=== PATIENT | male | born 1940 | race Caucasian/White ===

== ENCOUNTER 2019-03-09 20:32 | Inpatient (IN) | payer MEDICARE ==
[2019-03-09 21:43] VITALS: BMI 28.6
[2019-03-09] MEDS: Cyclobenzaprine 10 MG TAB PO PRN (22:18)
[2019-03-09] MEDS: Ibuprofen 200 MG TAB PO PRN (22:18)
[2019-03-09] MEDS ORDERED: EPOETIN ALFA EPBX SC SCH (22:30)
[2019-03-09] MEDS ORDERED: Atorvastatin Calcium 40 MG TAB PO SCH (22:30)
[2019-03-09] MEDS ORDERED: Carvedilol 6.25 MG TAB PO SCH (22:30)
[2019-03-09] MEDS: Acetaminophen 500 MG TAB PO SCH (23:30)
[2019-03-10] MEDS: Acetaminophen 500 MG TAB PO SCH ×4 (05:27→23:36)
[2019-03-10 05:34] LABS: #Eosinphils 0.1 thou/uL (0.0-0.7); #Lymphocytes 0.7 thou/uL (1.20-3.40); #Monocytes 0.6 thou/uL (0.11-0.59); #Neutrophils 3.5 thou/uL (1.40-6.50); %Basophils 0.7 % (0.0-1.0); %Eosinophils 2.4 % (0.0-10.0); %Lymphocytes 13.9 % (21.0-51.0); %Monocytes 12.8 % (0.0-10.0); %Neutrophils 70.1 % (42.0-75.0); MDiff Complete? YES; Macrocytosis MODERATE=16-30 cells (100X) (0-5/hpf); Mean Corpuscular HGB CONC 32.2 g/dL (32.0-36.0); Mean Corpuscular Hemoglobin 33.9 pg (27.0-31.0); Mean Platelet Volume 6.7 fL (7.4-10.4); Platelet Count 203 thou/uL (130-400); Platelet Morphology Comment Appears Adequate; RBC Distribution Width 15.3 % (11.5-14.5); Red Blood Cell (RBC) Count 2.66 mill/uL (4.70-6.10)
[2019-03-10 05:38] LABS: ALT (SGPT) 12 U/L (8-55); AST (SGOT) 24 U/L (5-34); Albumin 3.2 g/dL (3.4-4.8); Alkaline Phosphatase 110 U/L (40-150); Anion Gap 18 mmol/L (10-20); BUN (Urea Nitrogen) 25 mg/dL (8.4-25.7); Bilirubin, Total 1.2 mg/dL (0.2-1.2); Calc. Creatinine Clearance 22 mL/min (70-130); Carbon Dioxide 27 mmol/L (23-31); Chloride 98 mmol/L (98-107); Estimated GFR-MDRD 18; Glucose 78 mg/dL (83-110); Potassium 3.9 mmol/L (3.5-5.1); Protein, Total 6.2 g/dL (5.8-8.1); Sodium 139 mmol/L (136-145)
[2019-03-10] MEDS: Sevelamer Carbonate 800 MG TAB PO SCH ×3 (09:31→17:20)
[2019-03-10] MEDS: Allopurinol 100 MG TAB PO SCH (09:32)
[2019-03-10] MEDS: Amiodarone 200 MG TAB PO SCH (09:32)
[2019-03-10] MEDS: Carvedilol 6.25 MG TAB PO SCH ×2 (09:32→21:37)
[2019-03-10] MEDS: Amlodipine 5 MG TAB PO SCH (09:32)
[2019-03-10] MEDS: Ibuprofen 200 MG TAB PO PRN (16:12)
[2019-03-10] MEDS: Warfarin Sodium 2.5 MG TAB PO SCH (17:21)
[2019-03-10] MEDS: Atorvastatin Calcium 40 MG TAB PO SCH (21:37)
[2019-03-10] MEDS: Cyclobenzaprine 10 MG TAB PO PRN (21:41)
[2019-03-11 05:16] LABS: Hemoglobin 8.7 g/dL (14.0-18.0); Platelet Count 200 thou/uL (130-400)
[2019-03-11 05:24] LABS: INR-International Normal Ratio 2.1; Prothrombin Time 23.1 SEC (12.0-14.7)
[2019-03-11] MEDS: Acetaminophen 500 MG TAB PO SCH ×3 (05:33→17:25)
--- NOTE | 2019-03-11 06:31 | PRG ---
DATE OF SERVICE: 03/10/2019 SUBJECTIVE: The patient lying in bed, resting with no complaints. He has not had therapy today, but has had no shortness of breath or chest pain. OBJECTIVE: VITAL SIGNS: Shows his blood pressure 110/57, O2 sat is 97% on 2 L, temperature 97.5, pulse 61, respirations 18. LUNGS: Show decreased breath sounds. No rales or rhonchi. CARDIAC: Shows an irregular rhythm, 2/6 holosystolic murmur over the entire chest. ABDOMEN: Soft and nontender. Right AV fistula in the arm. Peritoneal dialysis catheter in abdomen. ASSESSMENT: 1. Resolving left rib fractures with minimal apical pneumo. 2. Stable, but severe nonischemic cardiomyopathy, ejection fraction 10-15 percent, status post automatic implantable cardioverter defibrillator. 3. Stable atrial fibrillation with rate control and anticoagulation. 4. Severe deconditioning, awaiting therapy. 5. End-stage renal disease, being followed by Dr. Ornelas on dialysis 3 times weekly. PLAN: Start PT/OT tomorrow. Continue dialysis 3 times weekly. Continue to monitor for hypotension, chest pain, palpitations, dizziness, and syncope. Job ID: [id number]
--- NOTE | 2019-03-11 07:15 | HP ---
HISTORY OF PRESENT ILLNESS: The patient is an unfortunate 78-year-old white male with a history of end-stage renal disease, on hemodialysis, as well as end-stage congestive systolic heart failure with ejection fraction of 10%, status post AICD placement and chronic atrial fibrillation, on chronic anticoagulation, who has fallen approximately 5 days ago on March 03 and suffered multiple left rib fractures with only a small apical pneumothorax. He was admitted to the trauma service and monitored. He did have some problems with fluid overload after resuscitation as he does have the above mentioned severe cardiomyopathy as well as severe mitral valve regurgitation and moderate aortic valve stenosis. He has subsequently been optimized on his medical treatment by Cardiology, Dr. Henley and Dr. Weldon and is felt to be stable and be transferred to [facility] for physical therapy. At present, he has no shortness of breath at rest, but has shortness of breath on minimal exertion. He has had his carvedilol dose decreased to 6.25 twice daily and has continued on amiodarone 200 daily for rate control of his atrial fibrillation. He is not on an BARTOLO inhibitor because of his hypotension. He is very weak, but is willing to cooperate with physical therapy. He has had complications in the past of severe ascites from his congestive heart failure and renal failure and has required peritoneal drainage, but none recently. PAST MEDICAL HISTORY: Otherwise unremarkable. PAST SURGICAL HISTORY: Positive for an AICD placement, peritoneal dialysis catheter placement and hemodialysis catheter. SOCIAL HISTORY: He lives with his . He has no drug use. No smoking history. Drinks occasionally. REVIEW OF SYSTEMS: HEENT: He denies any headaches, dizziness, change in vision, or hearing. PULMONARY: He has no cough, or sputum production, but does have dyspnea on minimal exertion. CARDIOVASCULAR: He denies chest pain, orthopnea, paroxysmal nocturnal dyspnea, but does have above-mentioned dyspnea on minimal exertion. GASTROINTESTINAL: He denies nausea, vomiting, diarrhea, or constipation. GENITOURINARY: Denies dysuria, or hematuria. MUSCULOSKELETAL: Complains of diffuse severe weakness. NEUROLOGIC: Denies localized numbness or tingling to arms or extremities. PHYSICAL EXAMINATION: GENERAL: The patient is an elderly male, lying flat in bed, sleeping, in no acute distress. Oriented x3 and cooperative. VITAL SIGNS: Show him to have blood pressure 122/58, O2 sats 93% on room air, respirations 20, pulse 77, afebrile. HEENT: Pupils are equal, round and reactive to light and accommodation. Sclerae anicteric. Conjunctivae pale. Oral mucous membranes well hydrated. NECK: Supple. No nodes or masses. JVP is not elevated. LUNGS: Decreased breath sounds diffusely. No rales or rhonchi. CARDIAC: Regular rhythm. PMI in the 5th intercostal space 1 cm left midclavicular line. There is an AICD in place. ABDOMEN: Soft, nontender, nondistended. No masses or organomegaly. SKIN/EXTREMITIES: No edema, clubbing, or cyanosis. NEUROLOGIC: Intact. LABORATORY DATA: Most recent laboratories show white count of 6000, hematocrit 27, hemoglobin 9.4. PT 26.4, INR 2.5. Sodium 135, potassium 4.3, chloride 96, bicarb 25, BUN 34, creatinine 4.29. Most recent chest x-ray on March 06 shows cardiomegaly, small left apical pneumothorax. No pulmonary congestion. The patient is not to be resuscitated per his and power of real estate attorney. MEDICATIONS: At this time include; 1. Allopurinol 50 mg daily. 2. Amiodarone 200 daily. 3. Amlodipine 5 daily. 4. Atorvastatin 40 daily. 5. Carvedilol 6.25 twice daily. 6. Sevelamer 800 mg 3 times daily. 7. Warfarin 2.5 daily. ASSESSMENT: The patient is an 78-year-old white male with; 1. History of end-stage congestive heart failure, 10% to 15% ejection fraction, status post AICD placement, who has had recent decompensation of congestive heart failure in the hospital after fluid resuscitation for his recent multiple left rib fractures. 2. His multiple left rib fractures are healing with small left apical pneumothorax, asymptomatic and no hemothorax with stable pain. 3. End-stage renal disease, on hemodialysis, being followed by Dr. Ornelas with adequate fluid removal with dialysis and appears to be euvolemic. 4. Atrial fibrillation with rate control and anticoagulation on warfarin with adequate PT/INR. 5. Severe deconditioning with inability to maintain ADLs, being admitted to [facility] for PT/OT. PLAN: 1. Continue physical therapy and occupational therapy. 2. Continue warfarin 2.5 daily. Check PT, INR daily. 3. Continue dialysis 3 times weekly. 4. Review vital signs during therapy and monitor for hypotension, chest pain or hypoxemia. 5. Continue to monitor for recurrent ascites or edema. 6. Continue blood pressure control with amlodipine and carvedilol. 7. Stress ulcer prophylaxis with pantoprazole 40 mg daily. Job ID: [id number]
[2019-03-11] MEDS: Allopurinol 100 MG TAB PO SCH (08:51)
[2019-03-11] MEDS: Sevelamer Carbonate 800 MG TAB PO SCH ×3 (08:51→17:24)
[2019-03-11] MEDS: Amlodipine 5 MG TAB PO SCH (08:51)
[2019-03-11] MEDS: Amiodarone 200 MG TAB PO SCH (08:52)
[2019-03-11] MEDS: Carvedilol 6.25 MG TAB PO SCH ×2 (08:52→21:18)
[2019-03-11] MEDS ORDERED: EPOETIN ALFA EPBX SC SCH (13:00)
[2019-03-11] MEDS: Warfarin Sodium 2.5 MG TAB PO SCH (17:25)
[2019-03-11] MEDS: Ibuprofen 200 MG TAB PO PRN (21:18)
[2019-03-11] MEDS: Atorvastatin Calcium 40 MG TAB PO SCH (21:18)
--- NOTE | 2019-03-11 21:46 | PRG ---
DATE OF SERVICE: 03/11/2019 SUBJECTIVE: The patient feels well, lying in the bed, decreasing pain, controlled with Tylenol. No shortness of breath or chest pain. He has not had therapy, but is preparing for this. OBJECTIVE: VITAL SIGNS: Temperature 96.9, blood pressure 98/54, respirations 18, pulse 60, and O2 sats 99% on room air. LUNGS: Clear. CARDIAC: Regular rhythm. ABDOMEN: Soft and nontender. SKIN/EXTREMITIES: No edema. ASSESSMENT: 1. Resolving left rib fractures, minimal pneumothorax. The patient is working on incentive spirometer. 2. Stable with severe nonischemic cardiomyopathy, ejection fraction of 10% to 15%, status post automatic implantable cardiac defibrillator. 3. Stable atrial fibrillation with rate control and anticoagulation. 4. Severe deconditioning, awaiting therapy. 5. End-stage renal disease, on dialysis 3 times weekly. PLAN: 1. Continue incentive spirometer. 2. Continue PT/OT. 3. Continue dialysis 3 times weekly. 4. Continue to monitor for chest pain, shortness of breath, palpitations or syncope. Job ID: [id number]
[2019-03-12] MEDS: Acetaminophen 500 MG TAB PO SCH ×4 (00:08→21:08)
[2019-03-12 05:08] LABS: Hemoglobin 8.6 g/dL (14.0-18.0); Platelet Count 205 thou/uL (130-400)
[2019-03-12 05:18] LABS: INR-International Normal Ratio 2.3; Prothrombin Time 24.9 SEC (12.0-14.7)
[2019-03-12] MEDS: Sevelamer Carbonate 800 MG TAB PO SCH ×3 (08:45→21:08)
[2019-03-12] MEDS: Amiodarone 200 MG TAB PO SCH (08:45)
[2019-03-12] MEDS: Allopurinol 100 MG TAB PO SCH (08:45)
[2019-03-12] MEDS: Carvedilol 6.25 MG TAB PO SCH ×2 (08:45→21:10)
[2019-03-12] MEDS: Amlodipine 5 MG TAB PO SCH (08:45)
--- NOTE | 2019-03-12 20:30 | PRG ---
DATE OF SERVICE: 03/12/2019 SUBJECTIVE: The patient feels well, got dialysis now, is cooperating with therapy today. OBJECTIVE: VITAL SIGNS: Temperature is 95.5, pulse 60, respirations 18, O2 sats 97% on room air. LUNGS: Clear. CARDIAC: Examination shows regular rhythm. ABDOMEN: Soft and nontender. Minimal tenderness to palpation of the left side of the chest. ASSESSMENT: 1. Resolving left rib fractures. 2. Resolving minimal apical pneumo. 3. Stable end-stage renal disease, on hemodialysis. 4. Deconditioning improving with therapy. 5. Systolic heart failure, stable with AICD placement. 6. Chronic atrial fibrillation with rate control and anticoagulation. PLAN: 1. Continue PT/OT. 2. Monitor vital signs during therapy. 3. Continue mild pain relief for fractured ribs. 4. Continue stress ulcer prophylaxis. Job ID: [id number]
[2019-03-12] MEDS: Warfarin Sodium 2.5 MG TAB PO SCH (21:08)
[2019-03-12] MEDS: Atorvastatin Calcium 40 MG TAB PO SCH (21:10)
[2019-03-13] MEDS: Acetaminophen 500 MG TAB PO SCH ×5 (00:13→23:49)
[2019-03-13] MEDS: Cyclobenzaprine 10 MG TAB PO PRN (00:17)
[2019-03-13] MEDS: Ibuprofen 200 MG TAB PO PRN (00:18)
[2019-03-13 06:05] LABS: Hemoglobin 8.5 g/dL (14.0-18.0); Platelet Count 217 thou/uL (130-400)
[2019-03-13 06:10] LABS: INR-International Normal Ratio 2.7; Prothrombin Time 28.3 SEC (12.0-14.7)
[2019-03-13] MEDS: Amlodipine 5 MG TAB PO SCH (08:14)
[2019-03-13] MEDS: Carvedilol 6.25 MG TAB PO SCH ×2 (08:14→20:15)
[2019-03-13] MEDS: Amiodarone 200 MG TAB PO SCH (08:14)
[2019-03-13] MEDS: Sevelamer Carbonate 800 MG TAB PO SCH ×3 (08:14→17:39)
[2019-03-13] MEDS: Allopurinol 100 MG TAB PO SCH (08:14)
[2019-03-13] MEDS: Warfarin Sodium 2.5 MG TAB PO SCH (17:39)
[2019-03-13] MEDS: Atorvastatin Calcium 40 MG TAB PO SCH (20:15)
--- NOTE | 2019-03-13 22:12 | PRG ---
DATE OF SERVICE: 03/13/2019 SUBJECTIVE: The patient feels well, feeling stronger with increasing strength, decreasing left sided chest pain. He states he is having some increasing abdominal ascites and feels he needs some removal by peritoneal dialysis. He is still receiving hemodialysis also. I advised him this needs to be discussed with his steam shovel engineer to determine how much . OBJECTIVE: VITAL SIGNS: Temperature is 97.1, pulse 60, respirations 18, O2 sats 98% on room air. Blood pressure LUNGS: Clear. CARDIAC: Showed regular rhythm. ABDOMEN: Soft and nontender, but distended with fluid wave. SKIN: Extremities show no edema. LABORATORY DATA: Hemoglobin 8.5, and platelet count 217,000. PT 28.3, INR 2.7. ASSESSMENT: 1. Stable atrial fibrillation with rate controlled on anticoagulation with warfarin. 2. Stable ischemic cardiomyopathy with 15% ejection fraction. Tolerating physical therapy well, but with increasing ascites. 3. End-stage renal disease, on hemodialysis and with peritoneal dialysis occasionally to remove fluid with increasing ascites. 4. Severe deconditioning, improving greatly. 5. Multiple rib fractures, improving with decreasing pain. PLAN: 1. Continue PT/OT. 2. Continue warfarin 2.5 daily. Continue dialysis hemo 3 times weekly. 3. Discussed removal of ascites, PD catheter with Nephrology. 4. Continue to monitor vital signs with therapy. Job ID: [id number]
[2019-03-14] MEDS: Acetaminophen 500 MG TAB PO SCH ×4 (05:08→22:02)
[2019-03-14 05:14] LABS: Hemoglobin 8.9 g/dL (14.0-18.0); Platelet Count 230 thou/uL (130-400)
[2019-03-14 05:24] LABS: INR-International Normal Ratio 2.5; Prothrombin Time 26.8 SEC (12.0-14.7)
[2019-03-14] MEDS: Sevelamer Carbonate 800 MG TAB PO SCH ×3 (08:51→16:54)
[2019-03-14] MEDS: Carvedilol 6.25 MG TAB PO SCH ×2 (08:51→22:01)
[2019-03-14] MEDS: Amiodarone 200 MG TAB PO SCH (08:52)
[2019-03-14] MEDS: Allopurinol 100 MG TAB PO SCH (08:52)
[2019-03-14] MEDS ORDERED: Epoetin (ESRD) 10,000 UNITS/ML VIAL SC SCH (15:00)
[2019-03-14] MEDS: Warfarin Sodium 2.5 MG TAB PO SCH (16:54)
--- NOTE | 2019-03-14 21:15 | PRG ---
DATE OF SERVICE: 03/14/2019 SUBJECTIVE: The patient feels well at dialysis now, had low blood pressure this morning prior to dialysis. He did take Tuesday. OBJECTIVE: VITAL SIGNS: Blood pressure is down to 89 this morning, he did not receive blood pressure medicines, O2 sats 97% on 1.5 L, afebrile, pulse 61, and respirations 16. ASSESSMENT: 1. Resolving left rib fractures. 2. Stable end-stage renal disease, on hemodialysis. 3. Current ascites, fluid overload, controlled with dialysis removal of fluids. 4. Ischemic cardiomyopathy with ejection fraction of 15% and tolerating dialysis and therapy well. PLAN: 1. Start PT/OT again tomorrow. 2. Continue warfarin 2.5 mg daily. 3. Continue dialysis 3 times weekly. 4. Have Nephrology remove fluid for dialysis catheter. 5. Monitor vital signs with therapy. Job ID: [id number]
[2019-03-14] MEDS: Atorvastatin Calcium 40 MG TAB PO SCH (22:02)
[2019-03-15] MEDS: Cyclobenzaprine 10 MG TAB PO PRN (00:47)
[2019-03-15 05:18] LABS: Hemoglobin 8.8 g/dL (14.0-18.0); Platelet Count 231 thou/uL (130-400)
[2019-03-15 05:25] LABS: INR-International Normal Ratio 2.4; Prothrombin Time 26.2 SEC (12.0-14.7)
[2019-03-15] MEDS: Acetaminophen 500 MG TAB PO SCH ×3 (05:53→17:23)
[2019-03-15] MEDS: Sevelamer Carbonate 800 MG TAB PO SCH ×3 (08:10→17:24)
[2019-03-15] MEDS: Allopurinol 100 MG TAB PO SCH (08:10)
[2019-03-15] MEDS: Ibuprofen 200 MG TAB PO PRN (08:14)
[2019-03-15] MEDS: Amiodarone 200 MG TAB PO SCH (08:18)
[2019-03-15] MEDS: Carvedilol 6.25 MG TAB PO SCH (08:18)
[2019-03-15] MEDS ORDERED: Epoetin (ESRD) 10,000 UNITS/ML VIAL SC SCH (09:00)
[2019-03-15] MEDS: Warfarin Sodium 2.5 MG TAB PO SCH (17:24)
[2019-03-15] MEDS: Atorvastatin Calcium 40 MG TAB PO SCH (20:55)
[2019-03-16] MEDS: Acetaminophen 500 MG TAB PO SCH ×5 (05:07→23:52)
[2019-03-16 05:41] LABS: Hemoglobin 8.6 g/dL (14.0-18.0); Platelet Count 237 thou/uL (130-400)
[2019-03-16] MEDS: Sevelamer Carbonate 800 MG TAB PO SCH ×3 (08:43→18:14)
[2019-03-16] MEDS: Allopurinol 100 MG TAB PO SCH (08:43)
[2019-03-16] MEDS: Amiodarone 200 MG TAB PO SCH (08:44)
[2019-03-16] MEDS ORDERED: Carvedilol 3.125 MG TAB PO SCH (09:00)
[2019-03-16] MEDS: Warfarin Sodium 2.5 MG TAB PO SCH (18:14)
[2019-03-16] MEDS: Atorvastatin Calcium 40 MG TAB PO SCH (22:15)
[2019-03-17] MEDS: Acetaminophen 500 MG TAB PO SCH ×4 (05:03→23:45)
[2019-03-17 05:49] LABS: Hemoglobin 9.1 g/dL (14.0-18.0); Platelet Count 267 thou/uL (130-400)
[2019-03-17 05:51] LABS: INR-International Normal Ratio 3.1; Prothrombin Time 31.9 SEC (12.0-14.7)
[2019-03-17] MEDS: Allopurinol 100 MG TAB PO SCH (08:04)
[2019-03-17] MEDS: Amiodarone 200 MG TAB PO SCH (08:04)
[2019-03-17] MEDS: Sevelamer Carbonate 800 MG TAB PO SCH ×3 (08:04→17:20)
--- NOTE | 2019-03-17 15:46 | PRG ---
DATE OF SERVICE: 03/17/2019 SUBJECTIVE: Mr. Kumari is resting comfortably in bed. Denies any complaints. His family member is in the room. He would like to have a stool softener. No other concerns or questions. OBJECTIVE: VITAL SIGNS: He is afebrile, heart rate is 68, respirations 19, oxygen saturation 93% on 1.5 L nasal cannula, blood pressure 110/59. CARDIOVASCULAR SYSTEM: S1 and S2 plus. RESPIRATORY SYSTEM: Normal vesicular breath sounds. ABDOMEN: Soft, nontender. Bowel sounds heard in all quadrants. Frail. EXTREMITIES: Without cyanosis or clubbing. Significant muscle atrophy. CENTRAL NERVOUS SYSTEM: Awake and responsive. Generalized weakness. LABORATORY VALUES: Show H and H of 9.1 and 28.4 with a platelet count of 267. IMPRESSION: 1. End-stage renal disease, on hemodialysis. 2. Chronic systolic congestive heart failure with ejection fraction of 10%. 3. Chronic atrial fibrillation. 4. Healing left rib fractures. 5. Constipation. 6. Deconditioning. PLAN: 1. Continue heart healthy renal diet. 2. Hemodialysis as scheduled. 3. DVT prophylaxis-he is on warfarin. 4. Decubitus precautions. 5. Stress ulcer prophylaxis. 6. Start Colace 100 mg b.i.d. 7. Routine laboratory values. 8. Physical Therapy. 9. Discussed with the patient and family in detail. All questions were answered. Job ID: [id number]
[2019-03-17] MEDS: Warfarin Sodium 2.5 MG TAB PO SCH (17:20)
[2019-03-17] MEDS: Docusate 100 MG CAP PO SCH (20:54)
[2019-03-17] MEDS: Atorvastatin Calcium 40 MG TAB PO SCH (20:54)
[2019-03-18] MEDS: Acetaminophen 500 MG TAB PO SCH ×4 (05:11→20:54)
[2019-03-18] MEDS: Cyclobenzaprine 10 MG TAB PO PRN ×2 (05:27→20:54)
[2019-03-18] MEDS: Ibuprofen 200 MG TAB PO PRN ×2 (05:27→20:54)
[2019-03-18] MEDS: Sevelamer Carbonate 800 MG TAB PO SCH ×3 (08:38→17:07)
[2019-03-18] MEDS: Docusate 100 MG CAP PO SCH ×2 (08:38→20:57)
[2019-03-18] MEDS: Allopurinol 100 MG TAB PO SCH (08:38)
[2019-03-18] MEDS: Amiodarone 200 MG TAB PO SCH (08:39)
--- NOTE | 2019-03-18 15:45 | RAD ---
EXAM: 3 views of the left shoulder HISTORY: Shoulder pain; history of fall COMPARISON: None FINDINGS: There is no evidence of acute fracture or dislocation. Severe glenohumeral degenerative william nges are present with joint space narrowing and bulky osteophyte formation. No soft tissue swelling is seen. A pacemaker generator projects over the left thorax. IMPRESSION: Severe left shoulder degenerative change without acute osseous abnormality.
--- NOTE | 2019-03-18 15:57 | PRG ---
DATE OF SERVICE: 03/18/2019 SUBJECTIVE: Mr. Kumari is resting comfortably in bed and denies any complaints except for left shoulder pain. He states that the Colace is helping. His spouse is in the room. OBJECTIVE: VITAL SIGNS: He is afebrile, heart rate 66, respirations 18, oxygen saturation 96% on 1.5 L, and blood pressure 94/55. CARDIOVASCULAR SYSTEM: S1 and S2 plus. RESPIRATORY SYSTEM: Normal vesicular breath sounds. ABDOMEN: Soft and nontender. Bowel sounds heard in all quadrants. EXTREMITIES: Without cyanosis or clubbing. CENTRAL NERVOUS SYSTEM: Awake and responsive. Generalized weakness. IMPRESSION: 1. Left shoulder pain. Examination shows some point tenderness to the humerus. 2. End-stage renal disease, on hemodialysis. 3. Chronic systolic congestive heart failure, ejection fraction 10%. 4. Chronic atrial fibrillation. 5. Resolved constipation. 6. Persistent deconditioning and hypotension slowly improving. PLAN: 1. Check x-ray of his left shoulder. 2. Hemodialysis as scheduled. 3. DVT prophylaxis with warfarin. 4. Decubitus precautions. 5. Continue PT/OT. 6. Hold warfarin today as his INR is 3.1. We will make a note for pharmacy to adjust warfarin dosing. 7. Dr. Dalal will assume care at 9 p.m. [facility]. Job ID: [id number]
[2019-03-18] MEDS: Warfarin Sodium 2.5 MG TAB PO SCH (18:08)
[2019-03-18] MEDS: Atorvastatin Calcium 40 MG TAB PO SCH (20:57)
[2019-03-19] MEDS: Acetaminophen 500 MG TAB PO SCH ×3 (05:31→18:40)
[2019-03-19 05:44] LABS: Prothrombin Time 60.2 SEC (12.0-14.7)
[2019-03-19 06:08] LABS: INR-International Normal Ratio 7.1
--- NOTE | 2019-03-19 06:42 | PRG ---
DATE OF SERVICE: 03/16/2019 SUBJECTIVE: The patient feels well, lying in the bed, still very weak, but with no shortness of breath or chest pain. OBJECTIVE: VITAL SIGNS: Blood pressure improved to 115/57, O2 sats 93% on 1.5 L, respirations 18, temperature 97.6. LUNGS: Clear. CARDIAC: Irregular rhythm. ABDOMEN: Soft with fluid wave, but no tenderness. SKIN: Extremities showed no edema. Left shoulder shows tenderness to palpation. Ribs showed no tenderness. ASSESSMENT: 1. Stable end-stage renal disease, on hemodialysis. 2. Severe systolic congestive heart failure with ejection fraction of 10%, but with improving blood pressure of carvedilol and lisinopril. 3. Ascites secondary to congestive heart failure, appears to be stable. 4. Multiple rib fractures on the left, healing with minimal pain and resolving pneumothorax. 5. Severe deconditioning with the patient unable to tolerate PT because of weakness, only able to sit on the side of the bed and exercise in the bed. PLAN: 1. Continue PT/OT. 2. Continue hemodialysis 3 times weekly. 3. Continue to monitor vital signs with therapy. 4. Continue O2 as needed. Job ID: [id number]
--- NOTE | 2019-03-19 06:56 | PRG ---
DATE OF SERVICE: 03/15/2019 SUBJECTIVE: The patient lying in bed, resting. No acute complaints, shortness of breath, chest pain, but very weak. OBJECTIVE: VITAL SIGNS: Shows his blood pressure is 82/45, O2 sats 99% on 1.5L, pulse 64. LUNGS: Clear. CARDIAC: Shows a regular rhythm. ABDOMEN: Shows ascites, but no tenseness or tenderness. SKIN: Extremities show 1+ edema. LABORATORY DATA: PT is 26.2, INR is 2.4 on warfarin 2.5 mg daily. The left arm is tender with rotation left shoulder and minimal tenderness to left side of the chest. ASSESSMENT: 1. Resolving left hip fractures and pneumothorax. 2. End-stage renal disease, on hemodialysis. 3. Severe systolic congestive heart failure with ejection fraction of 10%. 4. Significant deconditioning. 5. Hypotension secondary to congestive heart failure and end-stage renal disease. PLAN: 1. Continue off carvedilol and lisinopril, only continue on amiodarone for rate control of atrial fibrillation. 2. Continue warfarin 2.5 mg daily for stroke prophylaxis of atrial fibrillation. 3. Continue hemodialysis 3 times weekly. Fluid removal per store team leader. 4. Continue PT/OT as tolerated. Job ID: [id number]
--- NOTE | 2019-03-19 08:10 | PRG ---
DATE OF SERVICE: 03/19/2019 SUBJECTIVE: The patient is sitting up in a chair preparing the breakfast. Feels weak with no real shortness of breath or chest pain except for rib fractures, is wishing to discuss hospice with physician. He states that he feels very weak and does not want to burden his family. He is asking how comfortable is would be if he did not do dialysis. He has been on dialysis for 8 months and apparently has had difficulty with the entire time, but was doing better prior to this fall. He has not seen his smt machine operator, Dr. Henley recently, but does talk with his on site services specialist who states that he feels that he will get better if he stays on dialysis. OBJECTIVE: VITAL SIGNS: Shows his blood pressure 104/55, temperature is 96, pulse 65, respirations 18, O2 saturations 96% on 1-1/2 L. LUNGS: Shows decreased breath at the base with no rales or rhonchi. CARDIAC: Examination shows irregular rhythm. ABDOMEN: Distended, but nontender. LABORATORY: Shows PT/INR is supratherapeutic at 7.1 today. Hemoglobin stable at 9.1 two days ago with hematocrit of 24. ASSESSMENT: 1. Atrial fibrillation with rate controlled, now with supratherapeutic anticoagulation on warfarin and amiodarone and we will discontinue warfarin. Continue daily PT/INR. Monitor for bleeding and informed Dialysis of the PT/INR. 2. Severe systolic heart failure, ejection fraction 10%, appears to be optimized with fluid retention from dialysis, but unable to tolerate beta blockers or BARTOLO inhibitors because of hypotension and weakness, but appears to be improving. Discontinue BARTOLO inhibitor medicine. 3. Severe deconditioning, stabilized, but improving minimally with therapy in the hospital. 4. Multiple rib fractures on the left, resolving. 5. 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 PLAN: 1. Informed Dialysis of elevated PT/INR. 2. Discontinue warfarin. 3. Repeat comprehensive metabolic profile and CBC. 4. Continue PT/OT. 5. Discussed hospice with family and primary care physician and Cardiology. Job ID: [id number]
[2019-03-19] MEDS: Docusate 100 MG CAP PO SCH (08:38)
[2019-03-19] MEDS: Amiodarone 200 MG TAB PO SCH (08:38)
[2019-03-19] MEDS: Sevelamer Carbonate 800 MG TAB PO SCH ×2 (08:38→12:17)
[2019-03-19] MEDS: Allopurinol 100 MG TAB PO SCH (08:38)
[2019-03-19 09:14] LABS: ALT (SGPT) 17 U/L (8-55); AST (SGOT) 37 U/L (5-34); Albumin 2.6 g/dL (3.4-4.8); Alkaline Phosphatase 154 U/L (40-150); Anion Gap 21 mmol/L (10-20); BUN (Urea Nitrogen) 45 mg/dL (8.4-25.7); Bilirubin, Total 1.4 mg/dL (0.2-1.2); Calc. Creatinine Clearance 15 mL/min (70-130); Carbon Dioxide 26 mmol/L (23-31); Chloride 90 mmol/L (98-107); Estimated GFR-MDRD 11; Globulin 3.5 g/dL (2.4-3.5); Potassium 3.9 mmol/L (3.5-5.1); Protein, Total 6.1 g/dL (5.8-8.1); Sodium 133 mmol/L (136-145)
[2019-03-19 09:22] LABS: Hemoglobin 9.4 g/dL (14.0-18.0); Mean Corpuscular HGB CONC 32.1 g/dL (32.0-36.0); Mean Platelet Volume 6.6 fL (7.4-10.4); Platelet Count 278 thou/uL (130-400); Red Blood Cell (RBC) Count 2.69 mill/uL (4.70-6.10); White Blood Cell (WBC) Count 19.5 thou/uL (4.8-10.8)
[2019-03-19 09:23] LABS: Anisocytosis SLIGHT = 6-15 cells (100X) (0-5/hpf); Band 10 % (5-11); Lymphocytes 4 % (21-51); MDiff Complete? YES; Microcytosis SLIGHT = 6-15 cells (100X) (0-5/hpf); Monocytes 5 % (0-10); Neutrophil 81 % (42-75); Platelet Morphology Comment Appears Adequate
[2019-03-19 09:33] LABS: Glucose 43 mg/dL (83-110)
[2019-03-19] MEDS ORDERED: Sodium Chloride 0.9% 10 ML ONE ×2 (09:39→14:11)
[2019-03-19] MEDS: Dextrose 5% in Water 1,000 ML IV SCH (14:21)
[2019-03-20] MEDS: Acetaminophen 500 MG TAB PO SCH ×3 (00:43→12:12)
[2019-03-20] MEDS ORDERED: Dextrose 50% Abboject 50 ML SYRINGE ONE (05:32)
[2019-03-20 07:32] VITALS: BP 112/53; TEMP 97.9
[2019-03-20] MEDS: Dextrose 5% in Water 1,000 ML IV SCH (08:24)
== END 2019-03-20 13:42 | disposition hospice, home (50) | DRG 559 ==
LOC: NAV ACUTE 20:32
PROVIDERS: ADMIT Internal Medicine; ATTEND Internal Medicine
DX: S22.42XD Multiple fractures of ribs, left side, subsequent encounter for fracture with routine healing (principal); N18.6 End stage renal disease; R18.8 Other ascites; I50.22 Chronic systolic (congestive) heart failure; S27.0XXD Traumatic pneumothorax, subsequent encounter; I48.2 Chronic atrial fibrillation; W19.XXXD Unspecified fall, subsequent encounter; I08.0 Rheumatic disorders of both mitral and aortic valves; R53.81 Other malaise; M19.012 Primary osteoarthritis, left shoulder; K59.00 Constipation, unspecified; I95.9 Hypotension, unspecified; Z95.810 Presence of automatic (implantable) cardiac defibrillator; Z79.899 Other long term (current) drug therapy; Z99.2 Dependence on renal dialysis; Z79.01 Long term (current) use of anticoagulants; I25.5 Ischemic cardiomyopathy; R79.1 Abnormal coagulation profile
CPT/HCPCS: 36415; 36416; 80053; 85014; 85018; 85025; 85049; 85610; J2270; J7070; Q4081